=== PATIENT | female | born 1945 | race Caucasian/White ===

== ENCOUNTER → 2017-11-21 | Day surgery (SDC) | payer MEDICARE ==
[~2017-11-21] MED LIST: HYDROmorphone 2 MG/ML VIAL IV; LIDOCAINE 1% PF 2 ML VIAL. ID; LIDOCAINE 2% 100 MG/5 ML SYRINGE.; MORPHINE SULFATE 2 MG/ML DISP.SYRIN. IV; ONDANSETRON PF 4 MG/2 ML VIAL. IV; PROCHLORPERAZINE 10 MG/2 ML VIAL. IV; PROPOFOL 20 ML IV; fentaNYL PF VIAL 100 MCG/2 ML VIAL IV
[2017-11-21] MEDS: IV RINGERS,LACTATED 1000ML 1,000 ML IV (07:58)
== END | disposition home or self-care (01) ==
LOC: ENDOS 07:26
DX: Z12.11 Encounter for screening for malignant neoplasm of colon (principal); K57.30 Diverticulosis of large intestine without perforation or abscess without bleeding; K64.0 First degree hemorrhoids; Z98.890 Other specified postprocedural states; E78.00 Pure hypercholesterolemia, unspecified; M19.90 Unspecified osteoarthritis, unspecified site; Z90.710 Acquired absence of both cervix and uterus; Z87.39 Personal history of other diseases of the musculoskeletal system and connective tissue; Z88.6 Allergy status to analgesic agent
CPT/HCPCS: G0121; J2704

== ENCOUNTER → 2019-02-05 | Day surgery (SDC) | payer MEDICARE ==
[~2019-02-05] MED LIST changes: +CYCL5TAB PO; +GABA-585 PO; -HYDROmorphone 2 MG/ML VIAL IV; +IV RINGERS,LACTATED 1000ML 1,000 ML IV SCH; -LIDOCAINE 1% PF 2 ML VIAL. ID; -LIDOCAINE 2% 100 MG/5 ML SYRINGE.; +LIDOCAINE 2% PF 5 ML VIAL. ONE; -MORPHINE SULFATE 2 MG/ML DISP.SYRIN. IV; +OMEP20TA63 PO; -ONDANSETRON PF 4 MG/2 ML VIAL. IV; +PANT20TA2 PO; -PROCHLORPERAZINE 10 MG/2 ML VIAL. IV; -PROPOFOL 20 ML IV; +PROPOFOL 20 ML IV ONE; +RANI-376 PO; +SIMV10TA3 PO; -fentaNYL PF VIAL 100 MCG/2 ML VIAL IV
[2019-02-05 09:47] VITALS: BP 110/62
--- NOTE | 2019-02-08 16:07 | PATHOLOGY ---
[facility] Accession Number: [id number] . 01 Material submitted: . DISTAL ESOPHAGUS BIOPSY . 01 Clinical history: . Heartburn, reflux . 02 Diagnosis: Esophageal biopsies, distal esophagus: - Segments of hyperplastic squamous esophageal mucosa consistent with reflux esophagitis. . (JPM:mml; 02/08/2019) [facility]/02/08/2019 . 02 Comment: Sections of the distal esophagal biopsy reveal segments of tangentially-oriented, hyperplastic squamous esophageal mucosa. The findings are consistent with reflux esophagitis. There is no evidence of Turner's change, dysplasia, or malignancy. . (JPM:mml; 02/08/2019) . 02 Electronically signed: . Torres Boone MD, Pathologist NPI- [id number] . 01 Gross description: . Received in formalin labeled "Maia Kat, distal esophagus BX, rule out Turner's," are 4 segments of guthrie soft tissue measuring 1.2 x 0.8 x 0.2 cm in aggregate dimensions and ranging from 0.4 to 0.8 cm in maximum dimension. The specimen is submitted entirely in cassette A1. (TSD; 02/05/2019) TOB/TOB . 02 Pathologist provided ICD-10: K21.0 . 02 CPT . 290259 Specimen Comment: A courtesy copy of this report has been sent to Specimen Comment: [phone], . Specimen Comment: Report sent to / DR RAZA Performed at: 01 [facility] [address], [place], [place] [id number] MD Sony Monroe MD Phone: [phone] Performed at: 02 [facility] [address] [place], [place] [id number] MD Torres Boone MD Phone: [phone]
== END | disposition home or self-care (01) ==
LOC: SURG 07:56
PROVIDERS: ATTEND Internal Medicine Gastroenterology
DX: K21.0 Gastro-esophageal reflux disease with esophagitis (principal); K44.9 Diaphragmatic hernia without obstruction or gangrene; Z79.899 Other long term (current) drug therapy; Z98.890 Other specified postprocedural states; Z90.710 Acquired absence of both cervix and uterus; Z88.6 Allergy status to analgesic agent
CPT/HCPCS: 43239; 88305; J2001; J2704

== ENCOUNTER 2019-05-05 14:13 | Emergency (ER) | payer MEDICARE ==
[~2019-05-05] VITALS: Ht 160 cm; Wt 65.3 kg
[~2019-05-05 14:13] MED LIST changes: -IV RINGERS,LACTATED 1000ML 1,000 ML IV SCH; -LIDOCAINE 2% PF 5 ML VIAL. ONE; -PROPOFOL 20 ML IV ONE
--- NOTE | 2019-05-05 15:43 | PHYS DOC ---
Past Medical History Past Medical History: GERD, High Cholesterol Additional Past Medical Histor: fibromyalgia Past Surgical History: Hysterectomy Alcohol Use: None Drug Use: None Adult General Chief Complaint Chief Complaint: WEAKNESS/GENERALIZED HPI HPI Patient is a 74 year old female with history of high cholesterol, acid reflex, 6 broken ribs April 03 after falling off a horse, who presents to the ED today complaining of generalized weakness for 4 days and poor appetite for 2 days. Patient denies any fever, denies any chest pain or shortness of breath. Denies any cough or congestion. Denies any abdominal pain, nausea, vomiting. Denies any diarrhea. Denies any chance she is constipated. She states she is on gabapentin and tramadol which she is trying to wean herself off. Review of Systems Review of Systems Constitutional: Reports generalized weakness and poor appetite. Denies fever or chills [] Eyes: Denies change in visual acuity, redness, or eye pain [] HENT: Denies nasal congestion or sore throat [] Respiratory: Denies cough or shortness of breath [] Cardiovascular: No additional information not addressed in HPI [] GI: Denies abdominal pain, nausea, vomiting, bloody stools or diarrhea [] : Denies dysuria or hematuria [] Musculoskeletal: Denies back pain or joint pain [] Integument: Denies rash or skin lesions [] Neurologic: Denies headache, focal weakness or sensory changes [] All other systems were reviewed and found to be within normal limits, except as documented in this note. Current Medications Current Medications Current Medications Medications (Trade) Dose Ordered Sig/Birdie Start Time Stop Time Status Last Admin Dose Admin Sodium Chloride 1,000 ml @ 1,000 mls/hr 1X ONCE 05/05/19 16:00 05/05/19 16:59 DC 05/05/19 16:04 1,000 MLS/HR Allergies Allergies Allergies Coded Allergies Type Severity Reaction Last Updated Verified aspirin Allergy Intermediate "ITCHING" 02/05/19 No Physical Exam Physical Exam Constitutional: Well developed, well nourished, no acute distress, non-toxic appearance. [] HENT: Normocephalic, atraumatic, bilateral external ears normal, oropharynx moist, no oral exudates, nose normal. [] Eyes: PERRLA, EOMI, conjunctiva normal, no discharge. [] Neck: Normal range of motion, no tenderness, supple, no stridor. [] Cardiovascular:Heart rate regular rhythm, no murmur [] Lungs & Thorax: Bilateral breath sounds clear to auscultation [] Abdomen: Bowel sounds normal, soft, no tenderness, no masses, no pulsatile masses. [] Skin: Warm, dry, no erythema, no rash. [] Back: No tenderness, no CVA tenderness. [] Extremities: No tenderness, no cyanosis, no clubbing, ROM intact, no edema. [] Neurologic: Alert and oriented X 3, normal motor function, normal sensory function, no focal deficits noted. Cranial nerves II through XII intact Psychologic: Affect normal, judgement normal, mood normal. [] Current Patient Data Vital Signs Vital Signs Date Time Temp Pulse Resp B/P (MAP) Pulse Ox O2 Delivery O2 Flow Rate FiO2 05/05/19 17:30 72 18 98 05/05/19 15:25 98.2 125/76 (92) Room Air 98.2 Lab Values Laboratory Tests Test 05/05/19 16:10 05/05/19 17:15 White Blood Count 5.9 x10^3/uL (4.0-11.0) Red Blood Count 4.57 x10^6/uL (3.50-5.40) Hemoglobin 13.6 g/dL (12.0-15.5) Hematocrit 39.7 % (36.0-47.0) Mean Corpuscular Volume 87 fL (79-100) Mean Corpuscular Hemoglobin 30 pg (25-35) Mean Corpuscular Hemoglobin Concent 34 g/dL (31-37) Red Cell Distribution Width 14.2 % (11.5-14.5) Platelet Count 282 x10^3/uL (140-400) Neutrophils (%) (Auto) 63 % (31-73) Lymphocytes (%) (Auto) 25 % (24-48) Monocytes (%) (Auto) 10 % (0-9) H Eosinophils (%) (Auto) 1 % (0-3) Basophils (%) (Auto) 1 % (0-3) Neutrophils # (Auto) 3.7 x10^3uL (1.8-7.7) Lymphocytes # (Auto) 1.5 x10^3/uL (1.0-4.8) Monocytes # (Auto) 0.6 x10^3/uL (0.0-1.1) Eosinophils # (Auto) 0.1 x10^3/uL (0.0-0.7) Basophils # (Auto) 0.1 x10^3/uL (0.0-0.2) Sodium Level 138 mmol/L (136-145) Potassium Level 3.9 mmol/L (3.5-5.1) Chloride Level 101 mmol/L (98-107) Carbon Dioxide Level 26 mmol/L (21-32) Anion Gap 11 (6-14) Blood Urea Nitrogen 13 mg/dL (7-20) Creatinine 0.9 mg/dL (0.6-1.0) Estimated GFR (Cockcroft-Gault) 61.5 BUN/Creatinine Ratio 14 (6-20) Glucose Level 90 mg/dL (70-99) Calcium Level 9.9 mg/dL (8.5-10.1) Total Bilirubin 0.2 mg/dL (0.2-1.0) Aspartate Amino Transferase (AST) 17 U/L (15-37) Alanine Aminotransferase (ALT) 29 U/L (14-59) Alkaline Phosphatase 131 U/L (46-116) H Creatine Kinase 29 U/L (26-192) Creatine Kinase MB (Mass) < 0.5 ng/mL (0.0-3.6) Creatine Kinase MB Relative Index 1.7 % (0-4) Troponin I Quantitative < 0.017 ng/mL (0.000-0.055) EC-Rul-S-Type Natriuretic Peptide 77 pg/mL (0-124) Total Protein 7.2 g/dL (6.4-8.2) Albumin 3.7 g/dL (3.4-5.0) Albumin/Globulin Ratio 1.1 (1.0-1.7) Thyroid Stimulating Hormone (TSH) 1.431 uIU/mL (0.358-3.74) Urine Collection Type Unknown Urine Color Yellow Urine Clarity Clear Urine pH 7.5 Urine Specific Maud <=1.005 Urine Protein Negative mg/dL (NEG-TRACE) Urine Glucose (UA) Negative mg/dL (NEG) Urine Ketones (Stick) Negative mg/dL (NEG) Urine Blood Negative (NEG) Urine Nitrite Negative (NEG) Urine Bilirubin Negative (NEG) Urine Urobilinogen Dipstick 0.2 mg/dL (0.2 mg/dL) Urine Leukocyte Esterase Negative (NEG) Urine RBC Occ /HPF (0-2) Urine WBC 0 /HPF (0-4) Urine Bacteria 0 /HPF (0-FEW) Urine Opiates Screen Neg (NEG) Urine Methadone Screen Neg (NEG) Urine Barbiturates Neg (NEG) Urine Phencyclidine Screen Neg (NEG) Urine Amphetamine/Methamphetamine Neg (NEG) Urine Benzodiazepines Screen Neg (NEG) Urine Cocaine Screen Neg (NEG) Urine Cannabinoids Screen Neg (NEG) Urine Ethyl Alcohol Neg (NEG) Laboratory Tests 05/05/19 16:10 Laboratory Tests 05/05/19 16:10 EKG EKG 16:[address] Foley sinus rhythm HR 72 no STEMI Radiology/Procedures Radiology/Procedures []PROCEDURE: ACUTE ABDOMEN SERIES 2 view abdominal series and PA view chest x-ray Clinical indications: Weakness FINDINGS: No obstructive bowel pattern is seen. No air-fluid levels are seen. No free intraperitoneal air is seen. Chest x-ray demonstrates no acute lung infiltrate or pleural effusion or pulmonary edema or lung mass or pneumothorax. Small hiatal hernia is evident. The heart size and mediastinum and pulmonary vasculature and both lucy are unremarkable otherwise. Subacute healing left third and fourth rib fractures are seen. However, more acute appearing rib cage fractures are seen involving the left fifth and sixth and seventh and eighth ribs. IMPRESSION: Acute appearing fractures of the left rib cage as discussed above. These were not seen on previous study dated May 07, 2017. Electronically signed by: Chandler Artis MD (05/05/2019 4:53 PM) [place] [id number] DICTATED and SIGNED BY: CHANDLER ARTIS MD DATE: 05/05/19 1653 PROCEDURE: CT HEAD WO CONTRAST PQRS Compliance Statement: One or more of the following individualized dose reduction techniques were utilized for this examination: 1. Automated exposure control 2. Adjustment of the mA and/or kV according to patient size 3. Use of iterative reconstruction technique CT HEAD WITHOUT CONTRAST History: Weakness x3-4 days. Comparison: CT head without contrast, May 07, 2017. Technique: Axial images are obtained of the head from the skull base through the vertex without IV contrast. Findings: No mass-effect, midline shift, extra-axial fluid collection, hemorrhage, or obvious acute infarction is identified. Basilar cisterns are patent. The ventricles and sulci are prominent, consistent with age-related cerebral atrophy. There is mild supratentorial white matter hypoattenuation. This is a nonspecific finding but is commonly due to chronic small vessel ischemic disease. These findings are stable. Bone windows demonstrate no acute calvarial abnormality. The visualized paranasal sinuses are clear. Mastoid air cells are well aerated. IMPRESSION: No acute intracranial abnormality. Electronically signed by: Tex Simmons MD (05/05/2019 5:15 PM) [id number] DICTATED and SIGNED BY: TEX SIMMONS MD DATE: 05/05/19 1715 Course & Med Decision Making Course & Med Decision Making Pertinent Labs and Imaging studies reviewed. (See chart for details) This is a 74-year-old female patient presenting to the ED today with complaints of 4 days of generalized weakness and poor appetite for [address] of the head, EKG, labs including cardiac workup is negative, chest xray noted for acute left 3rd and 4th rib fx which she knows about. Patient has been given IV fluids. She states she feels better and would like to go home. He was discharged to home. Instructed to push fluids and follow-up with the primary care doctor in the next 1 week. Dragon Disclaimer Dragon Disclaimer This electronic medical record was generated, in whole or in part, using a voice recognition dictation system. Departure Departure Impression: Primary Impression: Generalized weakness Additional Impression: Ribs, multiple fractures Disposition: 01 HOME, SELF-CARE Condition: STABLE Referrals: NON,STAFF (PCP) Follow-up with your doctor in the course of next week Patient Instructions: Weakness, [id number] Additional Instructions: You were evaluated in the emergency room for poor appetite and generalized weakness, your labs, Ct fo the head and xrays are negative for any acute findings. We highly recommend you push fluids, follow-up with your doctor in the course of next week, come back to the ED at any point symptoms worsen. Problem Qualifiers Additional Impression: Ribs, multiple fractures Encounter type: subsequent encounter Fracture type: closed Laterality: left Fracture healing: with routine healing Qualified Codes: S22.42XD - Multiple fractures of ribs, left side, subsequent encounter for fracture with routine healing CECY SPENCER APRN May 05, 2019 15:43
[2019-05-05] MEDS ORDERED: IV NORMAL SALINE 1000ML BAG 1,000 ML IV ONE (16:00)
[2019-05-05 16:20] LABS: BASO # 0.1 x10^3/uL (0.0-0.2); BASO % 1 % (0-3); EOS # 0.1 x10^3/uL (0.0-0.7); EOS % 1 % (0-3); HEMATOCRIT 39.7 % (36.0-47.0); HEMOGLOBIN 13.6 g/dL (12.0-15.5); LYMPH # 1.5 x10^3/uL (1.0-4.8); LYMPH % 25 % (24-48); MEAN CORPUSCULAR HEMOGLOBIN 30 pg (25-35); MEAN CORPUSCULAR HGB CONC 34 g/dL (31-37); MEAN CORPUSCULAR VOLUME 87 fL (79-100); MONO # 0.6 x10^3/uL (0.0-1.1); MONO % 10 % (0-9); NEUT # 3.7 x10^3uL (1.8-7.7); NEUT % 63 % (31-73); PLATELET COUNT 282 x10^3/uL (140-400); RED BLOOD COUNT 4.57 x10^6/uL (3.50-5.40); RED CELL DISTRIBUTION WIDTH 14.2 % (11.5-14.5); WHITE BLOOD COUNT 5.9 x10^3/uL (4.0-11.0)
[2019-05-05 16:45] LABS: CALCIUM 9.9 mg/dL (8.5-10.1); CREATININE 0.9 mg/dL (0.6-1.0); GFR 61.5; POTASSIUM 3.9 mmol/L (3.5-5.1)
[2019-05-05 16:50] LABS: ALBUMIN 3.7 g/dL (3.4-5.0); ALBUMIN/GLOBULIN RATIO 1.1 (1.0-1.7); TOTAL BILIRUBIN 0.2 mg/dL (0.2-1.0); TOTAL PROTEIN 7.2 g/dL (6.4-8.2)
--- NOTE | 2019-05-05 16:55 | RAD ---
2 view abdominal series and PA view chest x-ray Clinical indications: Weakness FINDINGS: No obstructive bowel pattern is seen. No air-fluid levels are seen. No free intraperitoneal air is seen. Chest x-ray demonstrates no acute lung infiltrate or pleural effusion or pulmonary edema or lung mass or pneumothorax. Small hiatal hernia is evident. The heart size and mediastinum and pulmonary vasculature and both lucy are unremarkable otherwise. Subacute healing left third and fourth rib fractures are seen. However, more acute appearing rib cage fractures are seen involving the left fifth and sixth and seventh and eighth ribs. IMPRESSION: Acute appearing fractures of the left rib cage as discussed above. These were not seen on previous study dated May 07, 2017. Electronically signed by: Clarence Artis MD (05/05/2019 4:53 PM) [place] [id number]
[2019-05-05 16:58] LABS: CREATINE KINASE 29 U/L (26-192)
--- NOTE | 2019-05-05 17:18 | RAD ---
PQRS Compliance Statement: One or more of the following individualized dose reduction techniques were utilized for this examination: 1. Automated exposure control 2. Adjustment of the mA and/or kV according to patient size 3. Use of iterative reconstruction technique CT HEAD WITHOUT CONTRAST History: Weakness x3-4 days. Comparison: CT head without contrast, May 07, 2017. Technique: Axial images are obtained of the head from the skull base through the vertex without IV contrast. Findings: No mass-effect, midline shift, extra-axial fluid collection, hemorrhage, or obvious acute infarction is identified. Basilar cisterns are patent. The ventricles and sulci are prominent, consistent with age-related cerebral atrophy. There is mild supratentorial white matter hypoattenuation. This is a nonspecific finding but is commonly due to chronic small vessel ischemic disease. These findings are stable. Bone windows demonstrate no acute calvarial abnormality. The visualized paranasal sinuses are clear. Mastoid air cells are well aerated. IMPRESSION: No acute intracranial abnormality. Electronically signed by: Tex Simmons MD (05/05/2019 5:15 PM) [id number]
[2019-05-05 17:26] LABS: BILIRUBIN,URINE NEGATIVE (NEG); CLARITY,URINE CLEAR; COLOR,URINE YELLOW; NITRITE,URINE NEGATIVE (NEG); PH,URINE 7.5; PROTEIN,URINE NEGATIVE (NEG-TRACE); UROBILINOGEN,URINE 0.2 mg/dL (0.2 mg/dL)
[2019-05-05 17:34] LABS: BACTERIA,URINE 0 /HPF (0-FEW); BARBITURATES NEG (NEG); BENZODIAZEPINES NEG (NEG); CANNABINOIDS NEG (NEG); COCAINE NEG (NEG); METHADONE NEG (NEG); OPIATES NEG (NEG); PHENCYCLIDINE NEG (NEG); RBC,URINE OCC /HPF (0-2); WBC,URINE 0 /HPF (0-4)
[2019-05-05 17:36] LABS: AMPHETAMINE/METHAMPHETAMINE NEG (NEG)
[2019-05-05 19:00] VITALS: BP 136/73
--- NOTE | 2019-05-06 15:30 | EKG ---
[facility] [address] [place] [address] Test Date: 2019-05-05 Test Time: 16:22:12 Pat Name: DAVID EGAN Department: Room: Gender: F Clinical Dental Technician: : 1945 Requested By: CECY SPENCER Order Number: [id number] Reading MD: Measurements Intervals [place] Rate: 71 P: 26 SD: 154 QRS: -15 QRSD: 72 T: 39 QT: 374 QTc: 410 Interpretive Statements SINUS RHYTHM LEFTWARD AXIS OTHERWISE NORMAL ECG No previous ECG available for comparison
== END 2019-05-05 19:00 | disposition home or self-care (01) ==
LOC: ER 14:13
DX: S22.42XD Multiple fractures of ribs, left side, subsequent encounter for fracture with routine healing (principal); R53.1 Weakness; R42 Dizziness and giddiness; K21.9 Gastro-esophageal reflux disease without esophagitis; E78.00 Pure hypercholesterolemia, unspecified; Z88.6 Allergy status to analgesic agent; V80.010D Animal-rider injured by fall from or being thrown from horse in noncollision accident, subsequent encounter
CPT/HCPCS: 36415; 70450; 74022; 80053; 80307; 81001; 82553; 83880; 84443; 84484; 85025; 93005; 96360; 99285; J7030